=== PATIENT | female | born 1970 | race American Indian/Alaskan Native ===

== ENCOUNTER 2018-12-11 10:50 | Outpatient (CLI) | payer BC ==
--- NOTE | 2018-12-11 12:29 | Vascular Lab Report ---
PROCEDURE: VL VENOUS DUPLEX LE BILAT TECHNIQUE: Duplex Doppler sonography of the BILATERAL lower extremities. Vences scale imaging with and without compression, spectral waveform analysis with and without augmentation, and color flow Dopple r were employed. HISTORY: KNEE PAIN COMPARISONS: None FINDINGS: RIGHT lower EXTREMITY: Deep Venous Thrombus: None Superficial Venous Thrombus: None Venous valvular incompetence: None Soft tissue abnormality: Small areas of anechoic fluid in the anterior and lateral knee. LEFT LOWER EXTREMITY: Deep Venous Thrombus: None Superficial Venous Thrombus: None Venous valvular incompetence: None Soft tissue abnormality: Small area of anechoic fluid in the lateral knee. IMPRESSION: No evidence of deep venous thrombosis bilaterally. Small areas of fluid around the knee joint bilaterally, that may reflect inflammation or injury. This document is electronically signed by Iva Garg MD., Dec 11 2018 12:27:40 PM ET
== END 2018-12-11 10:51 | disposition home or self-care (01) ==
LOC: VAS 10:50
PROVIDERS: ATTEND Physician Assistant
DX: M25.561 Pain in right knee (principal); M25.562 Pain in left knee; I10 Essential (primary) hypertension; Z87.891 Personal history of nicotine dependence
CPT/HCPCS: 93970